=== PATIENT | male | born 1940 | race Caucasian/White ===

== ENCOUNTER 2017-08-07 13:46 | Emergency (ER) | payer MEDICARE, OTHER ==
[2017-08-07 13:57] VITALS: BP 156/85
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
[2017-08-07] MEDS ORDERED: TETANUS/DIPHTHERIA TOX-ADULT 0.5 ML SYR (>=7YO) IM ONE (14:20)
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
[2017-08-07] MEDS ORDERED: LIDOCAINE 1%/EPINEPHRINE INJ 20 ML VIAL INJ ONE (16:04)
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
[2017-08-07] MEDS ORDERED: CEPHALEXIN 500 MG CAPSULE PO ONE (17:30)
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
== END 2017-08-07 18:34 | disposition home or self-care (01) ==
LOC: ER 13:46
DX: S06.9X9A Unspecified intracranial injury with loss of consciousness of unspecified duration, initial encounter (principal); S01.312A Laceration without foreign body of left ear, initial encounter; S80.212A Abrasion, left knee, initial encounter; R29.898 Other symptoms and signs involving the musculoskeletal system; V19.88XA Pedal cyclist (driver) (passenger) injured in other specified transport accidents, initial encounter; Y93.55 Activity, bike riding; Z23 Encounter for immunization
CPT/HCPCS: 99284; 90471; 73610; 71045; 73630; 73562; 72110; 73110; 70450; 72125; 90714; 12013; A9270; J3490

== ENCOUNTER 2017-08-07 22:27 | Emergency (ER) | payer MEDICARE, OTHER ==
[2017-08-07 22:58] LABS: ABSOLUTE BASOPHILS # (AUTO) 0.1 10^3/uL (0.0-0.2); ABSOLUTE LYMPHOCYTES (AUTO) 1.2 10^3/uL (0.5-4.7); BASOPHILS % (AUTO) 0.5 % (0-2); EOSINOPHILS % (AUTO) 0.1 % (0-6); HEMATOCRIT 46.6 % (37.9-51.0); HEMOGLOBIN 15.9 g/dL (13.5-17.0); MEAN CORPUSCULAR HEMOGLOBIN 30.5 pg (27.0-33.4); MEAN CORPUSCULAR HGB CONC 34.2 g/dL (32.0-36.0); MEAN CORPUSCULAR VOLUME 89 fl (80-97); MONOCYTES % (AUTO) 9.2 % (3-13); PLATELET COUNT 251 10^3/uL (150-450); RED BLOOD COUNT 5.23 10^6/uL (4.35-5.55); RED CELL DISTRIBUTION WIDTH 13.7 % (11.5-14.0); SEGMENTED NEUTROPHILS % (AUTO) 79.2 % (42-78); TOTAL CELLS COUNTED % (AUTO) 100 %; WHITE BLOOD COUNT 11.3 10^3/uL (4.0-10.5)
[2017-08-07 23:12] LABS: ANION GAP 15 (5-19); BLOOD UREA NITROGEN 12 mg/dL (7-20); CALCIUM 10.2 mg/dL (8.4-10.2); CARBON DIOXIDE 26 mmol/L (22-30); CHLORIDE 99 mmol/L (98-107); GLUCOSE 125 mg/dL (75-110); POTASSIUM 4.2 mmol/L (3.6-5.0); SODIUM 139.6 mmol/L (137-145)
[2017-08-07] MEDS ORDERED: NORMAL SALINE 1000 ML 1,000 ML IV ONE (23:42)
[2017-08-07] MEDS ORDERED: KETOROLAC TROMETHAMINE INJ/PF 30 MG/1 ML SDV IV ONE (23:43)
[2017-08-07] MEDS ORDERED: PROCHLORPERAZINE EDISYLATE INJ 10 MG/2 ML VIAL IV ONE (23:43)
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
[2017-08-08 01:51] VITALS: BP 127/62
--- NOTE | 2017-08-08 07:50 | EKG REPORT ---
SEVERITY:- ABNORMAL ECG - SINUS RHYTHM FIRST DEGREE AV BLOCK EARLY PRECORDIAL TRANSITION, CONSIDER [place] [place]. : Confirmed by: Johnathon Bird MD 08-Aug-2017 07:49:56
== END 2017-08-08 01:52 | disposition home or self-care (01) ==
LOC: ER 22:27
DX: S06.0X0A Concussion without loss of consciousness, initial encounter (principal); V19.9XXA Pedal cyclist (driver) (passenger) injured in unspecified traffic accident, initial encounter; R11.2 Nausea with vomiting, unspecified; E86.0 Dehydration; R55 Syncope and collapse; R51 Headache; M79.671 Pain in right foot
CPT/HCPCS: 93005; 99284; 96361; 96374; 96375; 36415; 85025; 80048; 84484; 93010; J1885; J0780; J7030

== ENCOUNTER 2017-12-24 07:24 | Day surgery (SDC) | payer MEDICARE, OTHER ==
[2017-12-24] MEDS ORDERED: DIPHENHYDRAMINE HCL 50 MG/ML VIAL ONE (07:31)
[2017-12-24] MEDS ORDERED: NALOXONE HCL INJ/PF 0.4 MG/1 ML SDV ONE (07:31)
[2017-12-24] MEDS ORDERED: ONDANSETRON HCL INJ/PF 4 MG/2 ML SDV ONE (07:31)
[2017-12-24] MEDS ORDERED: GLUCAGON,HUMAN RECOMB 1 MG INJ ONE (07:32)
[2017-12-24] MEDS ORDERED: EPINEPHRINE INJ 1 MG/10 ML DISP.SYRIN ONE (07:32)
[2017-12-24] MEDS ORDERED: FENTANYL CITRATE INJ/PF 100 MCG/2 ML AMPUL ONE (07:32)
[2017-12-24] MEDS ORDERED: FLUMAZENIL INJ 0.5 MG/5 ML VIAL ONE (07:32)
[2017-12-24] MEDS: MIDAZOLAM 2 MG/2 ML INJ ONE ×2 (08:06→08:08)
--- NOTE | 2017-12-24 08:47 | Operative Report ---
Operative Report DATE OF SURGERY: 12/24/17 Operative Report: The risks, benefits and alternatives are explained to the patient in detail he is taken back to endoscopy unit Time out is called Conscious sedation medications are provided Rectal exam is done An Olympus videoscope is inserted to the patient's rectum the scope is then guided to the cecum photodocumentation is obtained the scope is withdrawn so that luminal and tubular views of the colon are obtained retroflexion is obtained PREOPERATIVE DIAGNOSIS: colorectal cancer screening POSTOPERATIVE DIAGNOSIS: internal hemorrhoids. diverticulosis. right side colon inflammation biopsy is obtained OPERATION: colonoscopy with biopsy SURGEON: BRIANA GRIMES ANESTHESIA: Moderate Sedation - 3mg of Versed, 50mcg of Fentanyl. conscious sedation monitoring time is 30mins TISSUE REMOVED OR ALTERED: as noted above COMPLICATIONS: none ESTIMATED BLOOD LOSS: none INTRAOPERATIVE FINDINGS: as noted above PROCEDURE: patient tolerated the procedure well no post procedure complications are noted he is discharged in good condition discharge date : 12/24/17 discharge diet and activity: regular follow up in 2-3 weeks patient is instructed to call the office or go to the ED if needed
[2017-12-24 09:19] VITALS: BP 125/60
== END 2017-12-24 09:20 | disposition home or self-care (01) ==
LOC: END 07:24
PROVIDERS: ATTEND Internal Medicine Gastroenterology
DX: Z12.11 Encounter for screening for malignant neoplasm of colon (principal); K57.30 Diverticulosis of large intestine without perforation or abscess without bleeding; K52.9 Noninfective gastroenteritis and colitis, unspecified; K64.8 Other hemorrhoids; E78.00 Pure hypercholesterolemia, unspecified; Z79.899 Other long term (current) drug therapy
CPT/HCPCS: 45380; 88305 ×2; J2250; J3010; J0171; J1200; J1610; J2310; J2405; J3490

== ENCOUNTER 2018-07-14 06:20 | Day surgery (SDC) | payer MEDICARE, OTHER ==
[~2018-07-14 06:20] MED LIST: KETOROLAC TROMETHAMINE 0.45% 4 DROP/0.4 ML DROPERETTE OD PRN
[2018-07-14] MEDS: CYCLOPENTOLATE 0.2%/PHENYLEPHRINE 1% OPH SOLN 2 ML OD PRN ×3 (06:44→07:04)
[2018-07-14] MEDS: BESIFLOXACIN HCL 0.6% OPH SUSP 5 ML BOTTLE OD PRN ×5 (06:44→07:53)
[2018-07-14] MEDS: TROPICAMIDE 1% OPH SOLN 3 ML OD PRN ×3 (06:44→07:04)
[2018-07-14] MEDS: TETRACAINE HCL 0.5% OPH SOLN 4 ML OD PRN ×4 (06:45→07:33)
[2018-07-14] MEDS ORDERED: MIDAZOLAM 2 MG/2 ML INJ ONE (06:56)
[2018-07-14] MEDS: LIDOCAINE 1% INJ-PF (10 MG/ML) 30 ML SDV ONE ×2 (07:21→07:42)
[2018-07-14] MEDS: EPINEPHRINE INJ/PF 1 MG/1 ML AMPULE ONE ×2 (07:22→07:42)
[2018-07-14] MEDS: CHONDR SU A NA/HYALUR INTRAOC KIT (SURGICARE) ONE ×2 (07:22→07:42)
--- NOTE | 2018-07-15 01:23 | [facility] OPERATIVE REPORT E ---
[facility] Operative Report NAME: RUBIN ACUNA JR AGE: 77Y DATE OF SURGERY: 07/14/2018 ROOM: PREOPERATIVE DIAGNOSIS: CATARACT, RIGHT EYE. POSTOPERATIVE DIAGNOSIS: CATARACT, RIGHT EYE. OPERATION: Cataract extraction with insertion of an IOL of the right eye. SURGEON: JESSICA CRUZ M.D. ANESTHESIA: Topical. PROCEDURE: After obtaining appropriate consent, the patient's right eye was prepped and draped in sterile fashion as well as the surgeon in a sterile manner and cataract surgery was started. First a paracentesis blade was used to make a side-port incision. Viscoelastic was used to inflate the anterior chamber. Next a 2.4 mm incision was made with a 2.4 mm blade, clear corneal temporally. A continuous capsulorrhexis was made using a cystotome and Utrata forceps. Following this hydrodissection was carried out to make the lens fully loose and mobile and it was rotated 90 degrees. Following this, a xyhqak-vpt-yixzazs technique was used to phacoemulsify the lens with a CDE of 6.83. The remaining cortex was removed with irrigation/aspiration. Provisc was instilled into the capsular bag to inflate the bag. A SN60WF, 19.5 diopter lens was placed. The remaining viscoelastic material was removed with irrigation/aspiration. Following this, the incision was found to be watertight. Besivance was instilled into the eye and a protective shield was placed over the eye. The patient returned to the postoperative recovery in stable condition. DICTATING PHYSICIAN: JESSICA CRUZ M.D. [id number] PHY#: [id number] ID: [id number] JOB#: [id number] ACCT: [id number] cc:JESSICA CRUZ M.D. >
--- NOTE | 2018-07-15 01:28 | [facility] DISCHARGE SUMMARY E ---
[facility] Discharge Summary NAME: RUBIN ACUNA JR AGE: 77Y ADMITTED: 07/14/2018 DISCHARGED: 07/14/2018 HOSPITAL COURSE: This is a 77-year-old male who underwent cataract extraction of the right eye. DIAGNOSIS: CATARACT, RIGHT EYE. He underwent surgery because he was having difficulty seeing words on the television. DISCHARGE INSTRUCTIONS: He should be on a regular diet. No bending at his waist, no heavy lifting. He should use his Besivance, PROLENSA, and Durezol at 3 p.m. and 8 p.m. and sleep with a rigid shield. I will see him for his 1 day postoperative tomorrow. DICTATING PHYSICIAN: JESSICA CRUZ M.D. [id number] PHY#: [id number] ID: [id number] JOB#: [id number] ACCT: [id number] cc:JESSICA CRUZ M.D. >
== END 2018-07-14 08:31 | disposition home or self-care (01) ==
LOC: SC 06:20
PROVIDERS: ATTEND Internal Medicine
DX: H25.813 Combined forms of age-related cataract, bilateral (principal); H04.123 Dry eye syndrome of bilateral lacrimal glands; H52.4 Presbyopia; Z79.899 Other long term (current) drug therapy; G47.30 Sleep apnea, unspecified; Z85.828 Personal history of other malignant neoplasm of skin
CPT/HCPCS: 66984; V2632; J2250; J3490 ×3; A9270; J0171

== ENCOUNTER 2018-08-04 09:15 | Day surgery (SDC) | payer MEDICARE, OTHER ==
[~2018-08-04 09:15] MED LIST changes: -KETOROLAC TROMETHAMINE 0.45% 4 DROP/0.4 ML DROPERETTE OD PRN; +KETOROLAC TROMETHAMINE 0.45% 4 DROP/0.4 ML DROPERETTE OS PRN
[2018-08-04] MEDS: BESIFLOXACIN HCL 0.6% OPH SUSP 5 ML BOTTLE OS PRN ×4 (10:12→11:10)
[2018-08-04] MEDS: TETRACAINE HCL 0.5% OPH SOLN 4 ML OS PRN ×3 (10:12→10:44)
[2018-08-04] MEDS: TROPICAMIDE 1% OPH SOLN 3 ML OS PRN ×3 (10:12→10:32)
[2018-08-04] MEDS: CYCLOPENTOLATE 0.2%/PHENYLEPHRINE 1% OPH SOLN 2 ML OS PRN ×3 (10:12→10:32)
[2018-08-04] MEDS ORDERED: ONDANSETRON HCL INJ/PF 4 MG/2 ML SDV ONE (10:18)
[2018-08-04] MEDS ORDERED: MIDAZOLAM 2 MG/2 ML INJ ONE (10:19)
[2018-08-04] MEDS ORDERED: FENTANYL CITRATE INJ/PF 100 MCG/2 ML AMPUL ONE (10:19)
[2018-08-04] MEDS: CHONDR SU A NA/HYALUR INTRAOC KIT (SURGICARE) ONE ×2 (10:55)
[2018-08-04] MEDS: LIDOCAINE 1%/PHENYLEPHRINE 1.5% 1 ML VIAL ONE ×2 (10:55)
[2018-08-04] MEDS: EPINEPHRINE INJ/PF 1 MG/1 ML AMPULE ONE ×2 (10:55)
[2018-08-04] MEDS ORDERED: CHONDR SU A NA/HYALUR INTRAOC KIT (SURGICARE) ONE (11:03)
[2018-08-04] MEDS: DORZOLAMIDE HCL 2%/TIMOLOL MALEAT 0.5% OPH SOLN 10 ML OS PRN ×2 (11:10)
--- NOTE | 2018-08-04 20:53 | [facility] OPERATIVE REPORT E ---
[facility] Operative Report NAME: RUBIN ACUNA JR AGE: 77Y DATE OF SURGERY: 08/04/2018 ROOM: PREOPERATIVE DIAGNOSIS: CATARACT, LEFT EYE. POSTOPERATIVE DIAGNOSIS: CATARACT, LEFT EYE. OPERATION: Cataract extraction with Toric IOL of the left eye. SURGEON: JESSICA CRUZ M.D. ANESTHESIA: Topical. PROCEDURE: After obtaining appropriate consent, the patient's left eye was prepped and draped in sterile fashion as well as the surgeon in a sterile manner and cataract surgery was started. First a paracentesis blade was used to make a side-port incision. Viscoelastic was used to inflate the anterior chamber. Next a 2.4 mm incision was made with a 2.4 mm blade, clear corneal temporally. A continuous capsulorrhexis was made using a cystotome and Utrata forceps. Following this hydrodissection was carried out to make the lens fully loose and mobile and it was rotated at 5 degrees. Following this, a gmykrw-zsz-rcgucjs technique was used to phacoemulsify the lens with a CDE of 8.74. The remaining cortex was removed with irrigation/aspiration. Provisc was instilled into the capsular bag to inflate the bag. A SN6ATU, 20.5 diopter lens was placed. The remaining viscoelastic material was removed with irrigation/aspiration. Following this, the incision was found to be watertight. Besivance was instilled into the eye and a protective shield was placed over the eye. The patient returned to the postoperative recovery in stable condition. DICTATING PHYSICIAN: JESSICA CRUZ M.D. [id number] PHY#: [id number] ID: [id number] JOB#: [id number] ACCT: [id number] cc:JESSICA CRUZ M.D. >
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
== END 2018-08-04 11:51 | disposition home or self-care (01) ==
LOC: SC 09:15
PROVIDERS: ATTEND Internal Medicine
DX: H25.812 Combined forms of age-related cataract, left eye (principal); Z96.1 Presence of intraocular lens; G47.33 Obstructive sleep apnea (adult) (pediatric); Z85.828 Personal history of other malignant neoplasm of skin
CPT/HCPCS: 66984; V2787; J2250; J3490 ×2; A9270; J0171; J3010; J2405; J2370; 142